=== PATIENT | female | born 1985 | race Caucasian/White ===

== ENCOUNTER 2016-12-09 10:59 | Emergency (ER) | payer MEDICAID, OTHER ==
[~2016-12-09] VITALS: Ht 162.6 cm; Wt 51.3 kg
[~2016-12-09 10:59] MED LIST: PRE NATAL
[2016-12-09 11:17] VITALS: BP 121/81
[2016-12-09 12:04] LABS: Urine Blood Negative /uL (Negative); Urine Glucose Normal (Normal); Urine Ketone Negative (Negative); Urine Mucus FEW (None Seen); Urine RBC 4 /hpf (0 - 4); Urine Squamous Epithelial Cell MOD /hpf (<5); Urine pH 7.5 (5.0-8.0)
[2016-12-09 12:05] LABS: Urine Nitrite POSITIVE (Negative)
[2016-12-09 12:08] LABS: Urine Bilirubin Negative (Negative); Urine Color Orange (Yellow)
== END 2016-12-09 12:51 | disposition home or self-care (01) ==
LOC: ER 10:59
DX: N39.0 Urinary tract infection, site not specified (principal); J45.909 Unspecified asthma, uncomplicated
CPT/HCPCS: 81001

== ENCOUNTER 2017-02-27 13:33 | Emergency (ER) | payer OTHER ==
[~2017-02-27] VITALS: Ht 162.6 cm; Wt 47.6 kg
[2017-02-27 14:50] LABS: Basophils # (auto) 0.1 uL; Basophils % (auto) 0.5 % (0.0-2.0); Eosinophils # (auto) 0.1 uL; Hematocrit 40.3 % (36.0-46.0); Hemoglobin 13.8 g/dL (12.2-16.2); Lymphocytes # (auto) 1.6 uL; Lymphocytes % (auto) 16.5 % (10.0-50.0); Mean Corpuscular Hemoglobin 31.9 pg (28.0-32.0); Mean Corpuscular Hgb Conc. 34.2 g/dL (32.0-36.0); Mean Corpuscular Volume 93.3 fL (80.0-100.0); Monocytes # (auto) 0.8 uL; Monocytes % (auto) 8.3 % (0.0-12.0); Neutrophils # (auto) 7.3 uL; Neutrophils % (auto) 73.7 % (37.0-80.0); Platelet Count (auto) 310 10^3/uL (140-450); Red Cell Distribution Width 13.3 % (11.8-14.3); White Blood Cell 9.9 10^3/uL (4.4-10.8)
[2017-02-27 15:13] LABS: Albumin 4.1 g/dL (3.4-5.0); Calcium 8.6 mg/dL (8.5-10.1); Potassium 3.9 mmol/L (3.5-5.1)
[2017-02-27 15:15] LABS: Bilirubin, Total 0.2 mg/dL (0.2-1.0); Total Protein 7.2 g/dL (6.4-8.2)
[2017-02-27 16:00] VITALS: BP 128/87
[2017-02-27] MEDS ORDERED: methylPREDNISolone SOD SUCC 125 MG/2 ML VL IM ONE (16:15)
== END 2017-02-27 16:33 | disposition home or self-care (01) ==
LOC: EDBD 13:33 → ER 13:42
DX: J45.901 Unspecified asthma with (acute) exacerbation (principal)
CPT/HCPCS: 36415; 80053; 85025; 96372; 99284; J2930

== ENCOUNTER 2017-02-28 16:30 | Emergency (ER) | payer OTHER ==
[~2017-02-28] VITALS: Ht 177.8 cm; Wt 63.5 kg
[2017-02-28 16:56] VITALS: BP 150/100
[2017-02-28] MEDS ORDERED: diphenhdrAMINE HCL 50 MG/1 ML VL IM ONE (17:00)
== END 2017-02-28 17:26 | disposition home or self-care (01) ==
LOC: EDBD 16:30 → ER 16:35
DX: L27.0 Generalized skin eruption due to drugs and medicaments taken internally (principal); T38.0X5A Adverse effect of glucocorticoids and synthetic analogues, initial encounter; J45.909 Unspecified asthma, uncomplicated; Y92.89 Other specified places as the place of occurrence of the external cause
CPT/HCPCS: 96372; 99283; J1200

== ENCOUNTER 2017-03-14 18:56 | Emergency (ER) | payer OTHER ==
[~2017-03-14] VITALS: Ht 162.6 cm; Wt 46.3 kg
[2017-03-14 19:09] VITALS: BP 139/96
== END 2017-03-14 22:00 | disposition left against medical advice (07) ==
LOC: ER 19:00
DX: R21 Rash and other nonspecific skin eruption (principal); Z53.21 Procedure and treatment not carried out due to patient leaving prior to being seen by health care provider

== ENCOUNTER 2017-04-02 17:23 | Emergency (ER) | payer OTHER ==
[~2017-04-02] VITALS: Ht 162.6 cm; Wt 50.4 kg
[2017-04-02 17:40] VITALS: BP 130/84
[2017-04-02 18:07] LABS: Urine Bilirubin Negative (Negative); Urine Blood Negative /uL (Negative); Urine Color Yellow (Yellow); Urine Glucose Normal (Normal); Urine Ketone Negative (Negative); Urine Mucus FEW (None Seen); Urine Nitrite Negative (Negative); Urine RBC <1 /hpf (0 - 4); Urine Squamous Epithelial Cell FEW /hpf (<5); Urine pH 6.5 (5.0-8.0)
== END 2017-04-02 22:00 | disposition left against medical advice (07) ==
LOC: ER 17:25
DX: M54.9 Dorsalgia, unspecified (principal); Z53.21 Procedure and treatment not carried out due to patient leaving prior to being seen by health care provider
CPT/HCPCS: 81001